=== PATIENT | female | born 1955 | race Caucasian/White ===

== ENCOUNTER 2023-06-28 08:54 | Outpatient (REF) | payer MEDICARE, OTHER, SELFPAY ==
--- NOTE | ~2023-06-28 | XR_ITS ---
EXAMINATION: XR BILATERAL KNEES CLINICAL INFORMATION: Reason for Exam M25.569 - Pain in unspecified knee COMPARISON: Knee radiographs 12/29/2018 TECHNIQUE: 4 views of the bilateral knees FINDINGS: RIGHT KNEE: No acute fracture or dislocation. Status post total knee arthroplasty in anatomic alignment. No evidence of hardware fracture or complication. Calcification along the course of the patellar tendon may reflect sequelae of prior trauma. No joint effusion. Soft tissues are unremarkable. LEFT KNEE: No acute fracture or dislocation. Status post total knee arthroplasty in anatomic alignment. No evidence of hardware fracture or complication. Calcification along the course of the quadriceps tendon may reflect sequelae of prior trauma. No joint effusion. Soft tissues are unremarkable. XR/XR knee RT 3V IMPRESSION: * No acute osseous abnormality. * Bilateral knee arthroplasties. No evidence of hardware fracture or complication.
--- NOTE | ~2023-06-28 | XR_ITS ---
EXAMINATION: XR BILATERAL KNEES CLINICAL INFORMATION: Reason for Exam M25.569 - Pain in unspecified knee COMPARISON: Knee radiographs 12/29/2018 TECHNIQUE: 4 views of the bilateral knees FINDINGS: RIGHT KNEE: No acute fracture or dislocation. Status post total knee arthroplasty in anatomic alignment. No evidence of hardware fracture or complication. Calcification along the course of the patellar tendon may reflect sequelae of prior trauma. No joint effusion. Soft tissues are unremarkable. LEFT KNEE: No acute fracture or dislocation. Status post total knee arthroplasty in anatomic alignment. No evidence of hardware fracture or complication. Calcification along the course of the quadriceps tendon may reflect sequelae of prior trauma. No joint effusion. Soft tissues are unremarkable. XR/XR knee LT 3V IMPRESSION: * No acute osseous abnormality. * Bilateral knee arthroplasties. No evidence of hardware fracture or complication.
== END 2023-06-28 08:55 | disposition home or self-care (01) ==
LOC: HO.HOSX 08:54
PROVIDERS: Visit Provider Orthopaedic Surgery
DX: M25.562 Pain in left knee (principal); Z96.653 Presence of artificial knee joint, bilateral
CPT/HCPCS: 73562; 99202

== ENCOUNTER 2023-06-28 10:38 | Outpatient (AMB) | payer MEDICARE, OTHER, SELFPAY ==
--- NOTE | 2023-06-28 10:54 | MHC.OFFVIS ---
Vital Signs 06/28/23 11:03 Height 5 ft 6 in Weight 240 lb BMI 38.7 Intake Visit Reasons: New Pt - Hx of Bilateral TKA - Lump on left knee Intake Note: Gely is a 68 year old female who presents today as a new patient with complaints of left knee pain. Left TKA 11/26/2011 Dr. Lindsey Right TKA Dr. Lynn Patient reports that she found a lump on the left leg at the proximal aspect of the Left tibia. This lump is tender to the touch. Denies injury to the area. She explains that she has bilateral knee pain Allergies phenytoin [Dilantin] Allergy (Unknown, Verified 03/19/23 11:29) From [facility] Allergy (Unknown, Uncoded 03/19/23 11:29) RASH HPI HPI New Pt - Hx of Bilateral TKA - Lump on left knee: Details: 68 yo F with chronic pain with small ossicle palpable over anterior left knee. No new pain. No injury PFSH Surgical History (Updated 06/29/23 @ 10:29 by Jaun Handy MD) Hx of tonsillectomy History of removal of ovarian cyst History of total left knee replacement History of total right knee replacement (~2005) Physical Exam Vital Signs: BMI result Body Mass Index 38.7 Extrem Other: inc c/d/i bilaterally there is small ossicle palpable over distal left incision,. Minimally tender Results Reviewed Results Reviewed: I personally reviewed relevant radiographs. Bilatera total knee arthroplasty in expected post operative position with no hardware complications or evidence of loosening Assessment & Plan Assessment & Plan (1) History of bilateral knee arthroplasty: Code(s): Z96.653 - Presence of artificial knee joint, bilateral Category: Surgical Plan: No problems with knees except for low grade chronic pain. Referral to pain management. Plan I have placed a referral for her to be seen at [facility]. PT Orders: Orders XR knee standing BI 06/28/23 M25.569 - Pain in unspecified knee Coding Level of Care Code New Pt Level 3 (67845) Diagnoses History of bilateral knee arthroplasty Z96.653
[2023-06-28 11:03] VITALS: BMI 38.7
== END 2023-06-28 11:30 | disposition home or self-care (01) ==
PROVIDERS: Visit Provider Orthopaedic Surgery
DX: M25.561 Pain in right knee (principal); Z96.653 Presence of artificial knee joint, bilateral
CPT/HCPCS: 99203